=== PATIENT | female | born 1935 | race Caucasian/White ===

== ENCOUNTER 2017-01-11 17:32 | Inpatient (IN) | payer OTHER ==
[~2017-01-11] VITALS: Ht 167.6 cm; Wt 102.1 kg
[2017-01-11 19:01] LABS: BASOPHIL % 0.3 % (0-2); PLATELET COUNT 234 x10^3mcL (130-400)
[2017-01-11] MEDS ORDERED: MAXZIDE-251 TAB PO (19:05)
[2017-01-11] MEDS ORDERED: VERAPAMIL HCL180 M1 PO (19:06)
[2017-01-11] MEDS ORDERED: BAYER ASPIRIN R81 MG PO (19:06)
[2017-01-11] MEDS ORDERED: PRESERVISION A1 EACH PO (19:07)
[2017-01-11 19:22] LABS: CALCIUM 8.9 mg/dL (8.5-10.1); CARBON DIOXIDE 30.1 mmol/L (21-32); CHLORIDE SERUM 99 mmol/L (98-107); GLUCOSE SERUM 106 mg/dL (74-106); POTASSIUM SERUM 3.9 mmol/L (3.5-5.1); SODIUM SERUM 134 mmol/L (136-145)
[2017-01-11 19:26] LABS: ALBUMIN 3.6 g/dL (3.4-5.0); ALKALINE PHOSPHATASE 55 U/L (46-116); ALT/SGPT 19 U/L (14-59); AST/SGOT 18 U/L (15-37); BILIRUBIN TOTAL 0.6 mg/dL (0.20-1.00); TOTAL PROTEIN, SERUM 7.6 g/dL (6.4-8.2)
[2017-01-11 19:29] LABS: RED CELL DISTRIBUTION WIDTH 15.3 % (11.5-14.5)
[2017-01-11 19:35] LABS: CK-MB 1.2 ng/mL (0-3.6)
[2017-01-11 19:49] LABS: CHOLESTEROL/HDL RATIO 3.8; MAGNESIUM 1.9 mg/dL (1.8-2.4); PHOSPHOROUS 3.2 mg/dL (2.5-4.9)
[2017-01-11 19:58] LABS: FREE T4 0.75 ng/dL (0.76-1.46); FREE THYROXINE INDEX 1.9 ug/dL (1.4-4.5); T3 TOTAL 0.97 ng/mL; T4(THYROXINE) 5.4 ug/dL (4.7-13.3)
[2017-01-11 20:18] VITALS: BP 146/62
[2017-01-11 20:48] VITALS: BP 146/62
[2017-01-11 23:20] LABS: microscopic required? NO
[2017-01-11 23:34] LABS: UA SPECIFIC GRAVITY <=1.005 (1.005-1.035); urine erythrocyte NEGATIVE (NEGATIVE)
[2017-01-11 23:41] LABS: AMPHETAMINE QUAL UR NONE DETECTED (NEG <=1000)
[2017-01-12 05:15] VITALS: BP 137/66
[2017-01-12 07:05] LABS: BASOPHIL % 0.2 % (0-2); PLATELET COUNT 211 x10^3mcL (130-400)
[2017-01-12 07:16] LABS: CALCIUM 8.2 mg/dL (8.5-10.1); CARBON DIOXIDE 26.8 mmol/L (21-32); CHLORIDE SERUM 101 mmol/L (98-107); CREATININE SERUM 0.9 mg/dL (0.6-1.0); GLUCOSE SERUM 105 mg/dL (74-106); POTASSIUM SERUM 3.5 mmol/L (3.5-5.1); SODIUM SERUM 135 mmol/L (136-145)
[2017-01-12 07:22] LABS: RED CELL DISTRIBUTION WIDTH 15.4 % (11.5-14.5)
[2017-01-12 10:15] VITALS: BP 154/66
[2017-01-12 14:59] VITALS: BP 123/43
[2017-01-12 16:54] VITALS: BP 124/57
[2017-01-12 21:29] VITALS: BP 136/47
[2017-01-13 04:38] VITALS: BP 132/52
[2017-01-13 06:06] LABS: CALCIUM 8.3 mg/dL (8.5-10.1); CARBON DIOXIDE 29.8 mmol/L (21-32); CHLORIDE SERUM 105 mmol/L (98-107); GLUCOSE SERUM 106 mg/dL (74-106); SODIUM SERUM 139 mmol/L (136-145)
[2017-01-13 06:39] LABS: BASOPHIL % 0.1 % (0-2); PLATELET COUNT 189 x10^3mcL (130-400)
[2017-01-13 06:40] LABS: RED CELL DISTRIBUTION WIDTH 15.5 % (11.5-14.5)
[2017-01-13 08:42] VITALS: BP 146/72
[2017-01-13] MEDS ORDERED: LAC PO (11:28)
[2017-01-13] MEDS ORDERED: BACTRIM DS1 TAB PO (11:28)
[2017-01-13 11:55] VITALS: BP 146/72
== END 2017-01-13 12:56 | disposition home or self-care (01) | DRG 872 ==
LOC: ED 17:32 → DU 18:34
PROVIDERS: Emergency Medicine; Family Medicine; ADMIT Family Medicine Sports Medicine
DX: A41.9 Sepsis, unspecified organism (principal); L03.311 Cellulitis of abdominal wall; E87.1 Hypo-osmolality and hyponatremia; R65.20 Severe sepsis without septic shock; T63.301A Toxic effect of unspecified spider venom, accidental (unintentional), initial encounter; I10 Essential (primary) hypertension; D64.9 Anemia, unspecified; E78.5 Hyperlipidemia, unspecified; Z68.36 Body mass index [BMI] 36.0-36.9, adult; Y92.018 Other place in single-family (private) house as the place of occurrence of the external cause
CPT/HCPCS: 83880; 84439; J1956; J3490; J7030; Q0092